=== PATIENT | female | born 1965 | race Caucasian/White ===

== ENCOUNTER 2018-03-07 12:38 | Emergency (ER) | payer OTHER ==
[~2018-03-07] VITALS: Ht 165.1 cm; Wt 103.9 kg
[2018-03-07 12:38] VITALS: BP_SYST 128
--- NOTE | 2018-03-07 12:38 | NUR ---
Pt c/o severe pain beneath right breast that radiates to back and chest since this AM. +N/V. Pt states that she had similar symptoms a week ago and thought it was r/t food poisoning.
--- NOTE | 2018-03-07 12:38 | NUR ---
Pt placed in bed 1, EKG is being performed.
--- NOTE | 2018-03-07 12:44 | NUR ---
ER at bedside examining patient.
[2018-03-07] MEDS ORDERED: KETOROLAC TROMETHAMINE 60 MG/2 ML VIAL IM ONE (13:00)
[2018-03-07] MEDS ORDERED: ONDANSETRON 4 MG ODT TAB PO ONE (13:00)
--- NOTE | 2018-03-07 13:18 | NUR ---
Pt off the unit for ultrasound
[2018-03-07 13:26] LABS: BILIRUBIN,URINE NEGATIVE (NEGATIVE); BLOOD, URINE NEGATIVE (NEGATIVE); CLARITY/URINE CLEAR (CLEAR); COLOR,URINE YELLOW (YELLOW); GLUCOSE,URINE NEGATIVE (NEGATIVE); KETONES,URINE NEGATIVE (NEGATIVE); LEUKOCYTE ESTERASE ,URINE NEGATIVE (NEGATIVE); NITRITE, URINE NEGATIVE (NEGATIVE); PH,URINE 5.5 (5.0-8.0); PROTEIN URINE NEGATIVE (NEGATIVE)
--- NOTE | 2018-03-07 13:30 | NUR ---
Pt returns from [facility].
[2018-03-07 13:31] LABS: BASOPHILS # (AUTO) 0.1 K/uL (0.0-0.2); BASOPHILS % (AUTO) 0.4 % (0.0-2.0); EOSINOPHILS % (AUTO) 0.3 % (0.0-4.0); HEMATOCRIT 47.5 % (36-48); LYMPHOCYTES # (AUTO) 2.3 K/uL (1.0-5.5); LYMPHOCYTES % (AUTO) 15.1 % (20.5-51.5); MEAN CORPUSCULAR HEMOGLOBIN 30 pg (27-31); MEAN CORPUSCULAR HGB CONC 32 % (32-36); MEAN CORPUSCULAR VOLUME 94 fL (79.0-98.0); MONOCYTES # (AUTO) 1.4 K/uL (0.0-1.0); MONOCYTES % (AUTO) 8.9 % (1.7-9.3); NEUTROPHILS # (AUTO) 11.5 K/uL (1.8-7.7); NEUTROPHILS % (AUTO) 75.3 % (40.0-70.0); PLATELET COUNT (AUTO) 352 K/uL (130-430); RED BLOOD CELL COUNT(AUTO) 5.06 MIL/uL (4.2-6.2); RED CELL DISTRIBUTION WIDTH 14.1 % (9.0-15.0); WHITE BLOOD COUNT (AUTO) 15.3 K/uL (4.8-10.8)
[2018-03-07 13:37] LABS: CALCIUM 9.4 mg/dL (8.4-11.0); CREATININE 0.79 mg/dL (0.55-1.30); POTASSIUM 4.2 mmol/L (3.5-5.1); TOTAL BILIRUBIN 1.1 mg/dL (0.0-1.0)
--- NOTE | 2018-03-07 13:45 | NUR ---
No needs verbalized at this time.
--- NOTE | 2018-03-07 14:10 | NUR ---
Pt c/o lower back pain. Dr. Dick notified.
[2018-03-07] MEDS ORDERED: MORPHINE SULFATE 10 MG/ML VIAL IM ONE (14:15)
--- NOTE | 2018-03-07 15:00 | NUR ---
Pt verbalizes improvement in back pain. No needs verbalized at this time.
[2018-03-07 15:28] VITALS: BP_SYST 122
--- NOTE | 2018-03-07 15:28 | NUR ---
Patient given written and verbal discharge instructions and verbalizes understanding. ER MD discussed with patient the results and treatment provided. Patient in stable condition. ID arm band removed. Rx of [place], Zofran, Motrin given. Patient educated on pain management and to follow up with PMD. Pain Scale 3/10. Opportunity for questions provided and answered. Medication side effect fact sheet provided.
== END 2018-03-07 15:28 | disposition home or self-care (01) ==
LOC: SED 12:38
DX: K80.20 Calculus of gallbladder without cholecystitis without obstruction (principal); Z88.1 Allergy status to other antibiotic agents
CPT/HCPCS: 36415; 76700; 80053; 81003; 82150; 83690; 85025; 96372; 99285; J1885; J2270; Q0162

== ENCOUNTER 2018-03-31 05:57 | Day surgery (SDC) | payer OTHER ==
[~2018-03-31] VITALS: Ht 165.1 cm; Wt 112.0 kg
[2018-03-31 06:45] LABS: HCG,QUAL RESULT NEGATIVE (NEGATIVE)
[2018-03-31] MEDS ORDERED: CEFAZOLIN SOD 1 GM/ ISO 50 ML PREMIX IV ONE (07:00)
[2018-03-31] MEDS ORDERED: KETOROLAC TROMETHAMINE 30 MG VIAL IVP ONE (09:45)
[2018-03-31] MEDS ORDERED: MIDAZOLAM HCL 5 MG/5 ML VIAL IVP ONE (09:45)
[2018-03-31] MEDS ORDERED: ONDANSETRON HCL 4 MG/2 ML VIAL IVP ONE (09:45)
[2018-03-31] MEDS ORDERED: fentaNYL CITRATE 250 MCG/5 ML AMP IV ONE (09:45)
[2018-03-31] MEDS ORDERED: BUPIVACAINE /PF 0.25% 30 ML VIAL INJ ONE (09:45)
[2018-03-31] MEDS ORDERED: PROPOFOL 200MG/ 20ML VIAL (DIPRIVAN) IV ONE (09:45)
[2018-03-31] MEDS ORDERED: SEVOFLURANE 15 MIN GAS INH ONE (09:45)
[2018-03-31] MEDS ORDERED: NS 1000 ML IV.SOLN IV ONE (09:45)
[2018-03-31] MEDS ORDERED: DEXAMETHASONE SOD PHOSPHATE 4 MG/ML VIAL IVP ONE (09:45)
[2018-03-31] MEDS ORDERED: LR 1,000 ML IV.SOLN IV ONE (09:45)
[2018-03-31] MEDS ORDERED: ROCURONIUM BROMIDE 10 MG/ML (ZEMURON) IV ONE (09:45)
[2018-03-31] MEDS ORDERED: fentaNYL CITRATE/PF 100 MCG/2 ML AMP IVP ONE (09:45)
[2018-03-31] MEDS ORDERED: IOHEXOL 50 ML IV ONE (10:04)
[2018-03-31] MEDS ORDERED: LR 1,000 ML IV SCH ×2 (10:47)
[2018-03-31] MEDS ORDERED: HYDROmorphone 2 MG/ML VIAL IVP PRN ×4 (11:00)
[2018-03-31] MEDS ORDERED: MEPERIDINE HCL/PF 25 MG/ML DISP.SYRIN IVP PRN ×2 (11:00)
[2018-03-31] MEDS ORDERED: HYDROmorphone 1 MG INJ. 1 MG/ML AMPUL IVP PRN ×3 (11:00→11:15)
[2018-03-31] MEDS ORDERED: D5/0.45 NS 1,000 ML IV SCH (11:02)
[2018-03-31] MEDS ORDERED: HYDROcodone/ACETAMIN 5-325 MG TAB (NORCO/ VICODIN) PO PRN ×2 (11:15)
[2018-03-31] MEDS ORDERED: HYDROmorphone 1 MG INJ. 1 MG/ML AMPUL ONE (11:34)
[2018-03-31 12:06] VITALS: BP_SYST 116
[2018-03-31] MEDS ORDERED: HYDROcodone/ACETAMIN 5-325 MG TAB (NORCO/ VICODIN) ONE (12:36)
== END 2018-03-31 14:45 | disposition home or self-care (01) ==
LOC: SDS 05:57 → SMU 05:58 → SDS 14:45
PROVIDERS: ATTEND Colon & Rectal Surgery
DX: K80.12 Calculus of gallbladder with acute and chronic cholecystitis without obstruction (principal); N87.0 Mild cervical dysplasia; E66.01 Morbid (severe) obesity due to excess calories; Z79.899 Other long term (current) drug therapy; Z88.8 Allergy status to other drugs, medicaments and biological substances; Z98.890 Other specified postprocedural states; Z90.89 Acquired absence of other organs; Z80.1 Family history of malignant neoplasm of trachea, bronchus and lung
CPT/HCPCS: 47563; 74300; 84703; 88304; C1727; C1758; J0690; J1100; J1170; J1885; J2250; J2405; J2704; J3010 ×2; J3490; J7030; J7120; Q9967